=== PATIENT | female | born 1995 | race Caucasian/White ===

== ENCOUNTER 2019-05-01 02:07 | Emergency (ER) | payer BC ==
[~2019-05-01 02:07] MED LIST: BIRTH CONTROL; CYCL10 PO; HYDACE5 PO; Percocet 5-3251 EACH PO; Zofran Odt4 MG SL
== END 2019-05-01 04:30 | disposition left against medical advice (07) ==
LOC: ER 02:07
DX: Z53.21 Procedure and treatment not carried out due to patient leaving prior to being seen by health care provider (principal)